=== PATIENT | female | born 1950 | race Caucasian/White ===

== ENCOUNTER 2017-02-15 20:51 | Emergency (ER) | payer OTHER ==
[~2017-02-15] VITALS: Ht 167.6 cm; Wt 97.2 kg
[2017-02-15] MEDS ORDERED: KEFLEX500 MG PO (21:45)
[2017-02-15 22:17] VITALS: BP 117/95
== END 2017-02-15 22:18 | disposition home or self-care (01) ==
LOC: EME 20:51
DX: S61.432A Puncture wound without foreign body of left hand, initial encounter (principal); W26.0XXA Contact with knife, initial encounter; I69.320 Aphasia following cerebral infarction; K21.9 Gastro-esophageal reflux disease without esophagitis; G20 Parkinson's disease; E03.9 Hypothyroidism, unspecified; Z87.891 Personal history of nicotine dependence
CPT/HCPCS: 99281; 99284

== ENCOUNTER 2017-04-11 14:24 | Observation (INO) | payer OTHER ==
[~2017-04-11] VITALS: Ht 167.6 cm; Wt 64.6 kg
[~2017-04-11 14:24] MED LIST: KEFLEX500 MG PO
[2017-04-11 15:11] LABS: HEMATOCRIT 44.9 % (36.0-46.0); MCH 29.6 PG (29.0-34.0); MCHC 32.7 G/DL (30.0-36.0); MCV 90.5 FL (83-99); MEAN PLAT.VOLUME 8.9 uM^3 (9.5-12.4); PLATELET COUNT 306 K/uL (156-360); RBC DIS.WIDTH-CV 12.5 % (11.8-14.6); RBC DIS.WIDTH-SD 41.2 % (39-53); RED BLOOD COUNT 4.96 M/uL (3.80-5.20); WHITE BLOOD COUNT 8.2 K/uL (4.1-10.2)
[2017-04-11 15:20] LABS: CHLORIDE 111 mEq/L (99-109); POTASSIUM 3.8 mEq/L (3.7-5.4); SODIUM 142 mEq/L (136-147)
[2017-04-11 15:22] LABS: GLUCOSE 106 mg/dL (70-99)
[2017-04-11 15:23] LABS: ANION GAP 9 MEQ/L (2-14)
[2017-04-11 15:26] LABS: GFR ESTIMATE (CALCULATED) > 59 mL/min/
[2017-04-11 15:27] LABS: UREA NITROGEN (BUN) 21 mg/dL (9-23)
[2017-04-11 15:30] LABS: TROP-I INTERPRETATION NEGATIVE; TROPONIN-I < 0.01 ng/mL (0.0-0.30)
[2017-04-11] MEDS ORDERED: FAMOTIDINE20 MG PO (16:18)
[2017-04-11] MEDS ORDERED: DULOXETINE HCL60 MG PO (16:18)
[2017-04-11] MEDS ORDERED: CARBIDOPA/LEVO1 EACH PO (16:19)
[2017-04-11] MEDS ORDERED: LISINOPRIL5 MG PO (16:19)
[2017-04-11] MEDS ORDERED: GABAPENTIN300 MG PO (16:20)
[2017-04-11] MEDS ORDERED: TRAZODONE HCL50 MG PO (16:20)
[2017-04-11] MEDS ORDERED: VENTOLIN HFA18 GM IH (16:21)
[2017-04-11 17:20] LABS: D-DIMER ELISA < 150.00 ng/mLDDU (<230)
[2017-04-11 17:58] LABS: TROP-I INTERPRETATION NEGATIVE; TROPONIN-I < 0.01 ng/mL (0.0-0.30)
[2017-04-11 18:07] VITALS: BP 159/101
[2017-04-11 18:31] VITALS: BP 189/106
[2017-04-11 23:58] LABS: TROP-I INTERPRETATION NEGATIVE; TROPONIN-I < 0.01 ng/mL (0.0-0.30)
[2017-04-12 00:33] VITALS: BP 134/79
[2017-04-12 03:55] VITALS: BP 144/79
[2017-04-12] MEDS ORDERED: ASPIR-LOW81 MG PO (07:56)
[2017-04-12 08:26] VITALS: BP 145/76
== END 2017-04-12 11:45 | disposition home or self-care (01) ==
LOC: EME 14:24 → EDOF 16:30 → 5WEST 16:30 → ENRESERV 16:31 → 5WEST 18:07 → ENPENDDIS 04-12 → 5WEST 04-12 11:45
PROVIDERS: Family Medicine; Nurse Practitioner Family
DX: R07.82 Intercostal pain (principal); I10 Essential (primary) hypertension; I69.320 Aphasia following cerebral infarction; F32.9 Major depressive disorder, single episode, unspecified; F41.9 Anxiety disorder, unspecified; G25.81 Restless legs syndrome; Z87.891 Personal history of nicotine dependence
CPT/HCPCS: 71020; 80048; 84484; 85027; 85379; 93005; 94640; 94640 76; 94760; 99202; 99281; 99285; G0378; J1650

== ENCOUNTER 2018-01-21 19:08 | Emergency (ER) | payer OTHER ==
[~2018-01-21] VITALS: Ht 167.6 cm; Wt 110.1 kg
[~2018-01-21 19:08] MED LIST changes: +ASPIR-LOW81 MG PO; +CARBIDOPA/LEVO1 EACH PO; +DULOXETINE HCL60 MG PO; +FAMOTIDINE20 MG PO; +GABAPENTIN300 MG PO; +LISINOPRIL5 MG PO; +TRAZODONE HCL50 MG PO; +VENTOLIN HFA18 GM IH
[2018-01-21 21:43] VITALS: BP 121/82
== END 2018-01-21 21:47 | disposition home or self-care (01) ==
LOC: EME 19:08
DX: S91.112A Laceration without foreign body of left great toe without damage to nail, initial encounter (principal); M79.605 Pain in left leg; M25.472 Effusion, left ankle; W19.XXXA Unspecified fall, initial encounter; Z23 Encounter for immunization; I10 Essential (primary) hypertension; Z86.73 Personal history of transient ischemic attack (TIA), and cerebral infarction without residual deficits
CPT/HCPCS: 73610; 73630; 99281; 99284; S0020

== ENCOUNTER 2018-01-31 15:55 | Emergency (ER) | payer OTHER ==
[~2018-01-31] VITALS: Ht 167.6 cm; Wt 111.3 kg
[2018-01-31 17:10] VITALS: BP 134/82
== END 2018-01-31 17:11 | disposition home or self-care (01) ==
LOC: EME 15:55
DX: S91.312D Laceration without foreign body, left foot, subsequent encounter (principal); Z48.02 Encounter for removal of sutures; W45.8XXD Other foreign body or object entering through skin, subsequent encounter; I10 Essential (primary) hypertension
CPT/HCPCS: 99281; 99283